=== PATIENT | female | born 1965 | race Caucasian/White ===

== ENCOUNTER 2017-05-23 06:17 | Day surgery (SDC) | payer OTHER ==
[2017-05-16 12:58] VITALS: BMI 31.7
[2017-05-23] MEDS ORDERED: LIDOCAINE HCL 2% (20ML MULTI-DOSE VIAL) NR ONE (07:32)
[2017-05-23] MEDS ORDERED: MIDAZOLAM HCL 2 MG/2 ML SINGLE DOSE VIAL ONE (07:34)
[2017-05-23] MEDS ORDERED: SUCCINYLCHOLINE CHLORIDE 200 MG/10 ML VIAL ONE (07:34)
[2017-05-23] MEDS ORDERED: PROPOFOL 20 ML ONE (07:34)
[2017-05-23] MEDS ORDERED: LIDOCAINE HCL 1%, 10 MG/ML (50 mL VIAL) IJ ONE (08:02)
[2017-05-23 08:57] VITALS: BP 110/64; PULSE 65; TEMP 98.1
[2017-05-23] MEDS ORDERED: LACTATED RINGERS SOLUTION 1,000 ML IV SCH (09:00)
[2017-05-23] MEDS ORDERED: ACETAMINOPHEN 325 MG TABLET (FP) PO PRN (09:32)
[2017-05-23] MEDS ORDERED: oxyCODONE HCL 5 MG TABLET PO PRN ×2 (09:33→09:34)
[2017-05-23] MEDS ORDERED: ONDANSETRON 4 MG/2 ML VIAL IVPUSH PRN (09:33)
--- NOTE | 2017-05-24 09:30 | OP ---
DATE OF OPERATION: 05/23/2017 PREOPERATIVE DIAGNOSES: 1. Right ring trigger finger. 2. Right hand mass. OPERATIVE PROCEDURES: 1. Right hand mass excision. 2. Right ring trigger finger release. SURGEON: Tone Mccloud MD ANESTHESIA: Local with sedation. COMPLICATIONS: None. ESTIMATED BLOOD LOSS: Minimal. INDICATIONS FOR PROCEDURE: The patient is a 52-year-old female with the above findings indicated for operative treatment. Risks, benefits and alternatives were discussed with the patient at length. Proper informed consent was obtained. Of note, the patient's initial dictation and booking were for the left hand. However, this was an error, and it was the right hand, and confirmed with the patient preoperatively and on examination with the patient, and the patient desired the right side to be operated on. DESCRIPTION OF PROCEDURE: After proper identification of the patient and correct operative site, the patient was brought to the operating room and placed supine on the operating room table. All prominences were well padded. Sedation was given by the anesthesiologist. Local anesthesia was given with 2% lidocaine. The right upper extremity was prepped and draped in the usual sterile fashion. A well-padded tourniquet was placed with a sterile prep. Esmarch bandage used to exsanguinate the right upper extremity. Tourniquet was inflated to 250 mmHg. A longitudinal incision was made over the A1 minh to the ring finger. Incision was taken sharply through skin with blunt and sharp dissection performed through subcutaneous tissues. A1 minh was identified and found to have a mass emanating off of it and this was excised and sent for pathological evaluation. A1 minh was then divided longitudinally and the patient was asked to flex and extend her finger and no triggering was noted. The wound was irrigated with saline and repaired with a 5-0 nylon suture. Sterile dressings were applied. The patient was reversed from anesthesia and brought to the recovery room in stable condition. She tolerated the procedure well. TONE MCCLOUD M.D. [id number]
--- NOTE | 2017-05-25 14:57 | PATH ---
Surgical Pathology Report Patient Name: KENDRA MUIR [facility]. Rec. #: [id number] /Age/Gender: 1965 (Age: 52) / F Account: [id number] Location: [facility] AMBUL[facility] Taken: 05/23/2017 Received: 05/23/2017 Reported: 05/25/2017 Physicians: Tone Frank M.D. Specimen(s) Received RIGHT RING FINGER MASS Clinical History Right ring trigger finger and mass Final Diagnosis SOFT TISSUE, RIGHT RING FINGER, EXCISION: SYNOVIUM WITH FOCAL CYSTIC AREA CONSISTENT WITH GANGLION CYST. Electronically Signed Valentin Boone M.D. Gross Description Received in formalin labeled "right ring finger mass," is a 0.7 cm in greatest dimension villa soft tissue fragment. The specimen is submitted in toto in one cassette. 05/24/201705/24/2017
== END 2017-05-23 09:50 | disposition home or self-care (01) ==
LOC: FASU 06:17
PROVIDERS: ATTEND Orthopaedic Surgery Hand Surgery
PROC: 0JBJ0ZX Excision of Right Hand Subcutaneous Tissue and Fascia, Open Approach, Diagnostic (ICD-10-PCS; 2017-05-23)
PROC: 0LN70ZZ Release Right Hand Tendon, Open Approach (ICD-10-PCS; principal; 2017-05-23 08:00)
DX: M65.341 Trigger finger, right ring finger (principal); D21.12 Benign neoplasm of connective and other soft tissue of left upper limb, including shoulder
CPT/HCPCS: 88304-TC